=== PATIENT | female | born 2000 | race Hispanic/Latino ===

== ENCOUNTER 2021-05-19 01:06 | Emergency (ER) | payer BC ==
[~2021-05-19] VITALS: Ht 165.1 cm; Wt 69.4 kg
[2021-05-19 01:09] VITALS: BP 127/80
[2021-05-19] MEDS ORDERED: SCOP1PAT11 TD (02:36)
[2021-05-19] MEDS ORDERED: MECL-160 PO (02:36)
[2021-05-19] MEDS ORDERED: MECLIZINE HCL 25 MG TABLET ONE (02:46)
== END 2021-05-19 02:55 | disposition home or self-care (01) ==
LOC: EDH 01:06
DX: H83.09 Labyrinthitis, unspecified ear (principal); R42 Dizziness and giddiness; Z20.822 Contact with and (suspected) exposure to COVID-19
CPT/HCPCS: 87635; 87804 ×2; 99283; C9803